=== PATIENT | male | born 1995 | race Hispanic/Latino ===

== ENCOUNTER 2017-06-30 00:50 | Emergency (ER) | payer SELFPAY ==
[2017-06-30] MEDS ORDERED: IBUPROFEN 600 MG TABLET ONE (01:03)
== END 2017-06-30 01:34 | disposition home or self-care (01) ==
LOC: EDH 00:50
DX: S93.491A Sprain of other ligament of right ankle, initial encounter (principal); X50.9XXA Other and unspecified overexertion or strenuous movements or postures, initial encounter; Y93.89 Activity, other specified; Y92.89 Other specified places as the place of occurrence of the external cause; Y99.8 Other external cause status
CPT/HCPCS: 73610